=== PATIENT | male | born 1990 | race Caucasian/White ===

== ENCOUNTER 2016-09-27 17:52 | Emergency (ER) | payer MEDICAID ==
[~2016-09-27] VITALS: Ht 172.7 cm; Wt 64.0 kg
[~2016-09-27 17:52] MED LIST: ALBU8.5H3 INH; CETI10CA PO; GUAI120S26 PO; LEVO500T10 PO; MONT10TA21 PO; PRED10TA PO; PRED20TA PO; PRED25 PO
[2016-09-27 18:15] VITALS: Ht 172.7 cm; Wt 64.0 kg
[2016-09-27] MEDS ORDERED: ALBUTEROL 0.083% (NEB) 2.5 MG/3 ML AMP NEB STA (19:04)
[2016-09-27] MEDS ORDERED: predniSONE 20 MG TAB PO STA (19:04)
[2016-09-27] MEDS ORDERED: IPRATROPIUM (NEB) 0.5 MG/2.5 ML AMP NEB STA (19:04)
[2016-09-27] MEDS ORDERED: ACETAMINOPHEN 500 MG TAB PO STA (19:05)
[2016-09-27] MEDS ORDERED: IBUPROFEN 600 MG TAB PO ONE (19:30)
--- NOTE | 2016-09-27 20:06 | ERD ---
ER Documentation Chief Complaint Date/Time DATE: 09/27/16 TIME: 20:02 Chief Complaint SOB X3 DAYS. HX ASTHMA. DENIES INHALERS/BREATHING TX HPI This is a 25-year-old male with a known history of asthma that presents to the emergency department complaining of 3 days of dyspnea. The patient contrary to the triage note denies any shortness of breath but states his dyspnea is similar nature to his previous asthma exacerbations. He also had a tactile fever with shaking and chills and a sore throat. The patient did not use any rescue inhalers prior to arrival as he ran out of his inhalers over a year ago. He has never required intubation in the past for an asthma attack nor has he required admission to the hospital for an asthma attack. He utilizes his inhaler several times a year on a as needed basis and indicates his asthma exacerbates with animal dander and respiratory infections. He denies any abdominal pain. He has no recent travel or prolonged immobilization ROS All systems reviewed and are negative except as per history of present illness. Medications Home Meds Active Scripts Cetirizine Hcl* (Zyrtec*) 10 Mg Capsule, 10 MG PO DAILY, #30 TAB.CHEW Prov:ALBERT TALAVERA NP 12/16/15 Zstpvkxgxnd-M-Evbqmhugdr Hb* (Guaifenesin* DM Syrup) 120 Ml Syrup, 10 ML PO Q4H Y for COUGH, #60 ML Prov:ALBERT TALAVERA NP 12/16/15 Albuterol Sulfate* (Proair HFA*) 8.5 Gm Hfa.aer.ad, 2 PUFF INH Q4H Y for WHEEZING AND SOB, #1 INHALER Prov:ALBERT TALAVERA NP 12/16/15 Albuterol Sulfate* (Proair HFA*) 8.5 Gm Hfa.aer.ad, 2 PUFF INH Q4 for 14 Days, INH Prov:ADRIEL MENDOZA NP 04/12/15 Prednisone (Prednisone) 2.5 Mg Tab, 2.5 MG PO DAILY for 2 Days, TAB Prov:ADRIEL MENDOZA NP 04/12/15 Prednisone (Prednisone) 10 Mg Tab, 5 MG PO DAILY for 2 Days, TAB Prov:ADRIEL MENDOZA NP 04/12/15 Prednisone* (Prednisone*) 10 Mg Tab, 10 MG PO DAILY for 2 Days, TAB Prov:ADRIEL MENDOZA [employer] WORK[employer] 04/12/15 Prednisone* (Prednisone*) 20 Mg Tab, 20 MG PO DAILY, #2 TAB Prov:ADRIEL MENDOZA NP 04/12/15 Levofloxacin* (Levofloxacin*) 500 Mg Tablet, 500 MG PO DAILY for 7 Days, TAB Prov:ADRIEL MENDOZA NP 04/12/15 Montelukast Sodium* (Singulair*) 10 Mg Tab, 10 MG PO HS for 30 Days Prov:ADRIEL MENDOZA [employer] WORK[employer] 04/12/15 Allergies Allergies: Coded Allergies: No Known Allergy (Unverified , 09/27/16) PMhx/Soc Medical and Surgical Hx: pt denies Medical Hx, pt denies Surgical Hx History of Surgery: No Anesthesia Reaction: No Hx Neurological Disorder: No Hx Respiratory Disorders: Yes Hx Cardiac Disorders: No Hx Psychiatric Problems: No Hx Miscellaneous Medical Probl: No Hx Alcohol Use: No Hx Substance Use: No Hx Tobacco Use: No Physical Exam Vitals Vital Signs Date Time Temp Pulse Resp B/P Pulse Ox O2 Delivery O2 Flow Rate FiO2 09/27/16 19:30 94 22 97 21 09/27/16 18:15 100.6 100 28 125/59 98 Physical Exam Constitutional:Well-developed. Well-nourished. HEENT:Normocephalic. Atraumatic.Pupils were equal round reactive to light. Moist mucous membranes.No tonsillar exudates with erythremia both tonsils. Uvula midline. Neck: No nuchal rigidity. No lymphadenopathy. No posterior cervical spine tenderness or step-offs. Respiratory: Not using accessory muscles of respiration. Wheezing heard on end auscultation bilaterally with no rales or rhonchi. Patient speaking in full complete sentences. Cardiovascular: Regular rate regular rhythm.No murmurs. No rubs were appreciated.S1, S2 normal. Distal pulses are palpable 2+ bilaterally. GI: Abdomen was soft. Nontender. Non Distended. No pulsatile abdominal masses or bruits. No rebound. No guarding. Bowel sounds were present and normal. Muscle skeletal: Full range of motion of both the upper and lower extremities bilaterally.Normal muscle tone.No assymetrical calf tenderness or swelling. Skin: No petechia, no purpura. No lesions on the palms or the soles of the feet. No maculopapular rash. NEURO: Patient was alert, awake, orientated x3.No facial droop. Gait observed and normal with no ataxia.Speech had regular rate and rhythm. No focal neurological deficits. Results 24 hrs Current Medications Medications (Trade) Dose Ordered Sig/Mary Route PRN Reason Start Time Stop Time Status Last Admin Dose Admin Albuterol (Proventil 0.083% (Neb)) 5 mg ONCE STAT NEB 09/27/16 19:04 09/27/16 19:05 DC 09/27/16 19:29 Ipratropium [place] (Atrovent 0.02% (Neb)) 0.5 mg ONCE STAT NEB 09/27/16 19:04 09/27/16 19:05 DC 09/27/16 19:29 Prednisone (Prednisone) 60 mg ONCE STAT PO 09/27/16 19:04 09/27/16 19:05 DC 09/27/16 19:15 Ibuprofen (Motrin) 600 mg ONCE ONCE PO 09/27/16 19:30 09/27/16 19:31 DC 09/27/16 19:15 Acetaminophen (Tylenol Tab) 1,000 mg ONCE STAT PO 09/27/16 19:05 09/27/16 19:06 DC 09/27/16 19:15 Procedures/MDM This patient presented to the emergency department with a mild asthma exacerbation. The patient was given nebulizer treatment of albuterol and Atrovent and afterwards was reevaluated by myself and had no wheezing on auscultation. I did not feel is necessary to obtain a chest radiograph given that this is not new onset wheezing. The patient had a low-grade fever that was thought to be secondary to his pharyngitis. I did feel the pharyngitis was more likely viral in etiology however the patient stated he would prefer to be discharged with dose of antibiotics as he has had bronchitis in the past. He has no risk factors for a pulmonary embolism. The patient was discharged with azithromycin, low-dose steroids and nebulizer inhaler. The patient was discharged home in fair condition. They were instructed to return to the emergency department at any time if there was any worsening of their condition. The patient stated they would follow up with their PCP in the next 24-48 hours to initiate a suitable medication regimen under the care of their PCP as well as to allow their PCP to monitor any drug reactions. The patient was discharged home with prescriptions after they gave informed consent to the new medication. They were also fully informed by myself on the adverse effects and adverse drug interactions in order to provide adequate safeguards to prevent possible adverse reactions to medications. Departure Diagnosis: Primary Impression: Acute asthma exacerbation Asthma severity: unspecified severity Qualified Code: J45.901 - Asthma with acute exacerbation, unspecified asthma severity Additional Impression: Pharyngitis, acute Pharyngitis/tonsillitis etiology: unspecified etiology Qualified Code: J02.9 - Acute pharyngitis, unspecified etiology Condition: DANNY Walker Sep 27, 2016 20:06
[2016-09-27] MEDS ORDERED: ALB.5NB20 INHALATION (20:07)
[2016-09-27] MEDS ORDERED: PRED50TA PO (20:07)
[2016-09-27] MEDS ORDERED: AZIT250T94 PO (20:07)
[2016-09-27 20:28] VITALS: BP 130/61; PULSE 99; RESP 16; TEMP 99.3
== END 2016-09-27 20:28 | disposition home or self-care (01) ==
LOC: FTE 17:52
DX: J45.901 Unspecified asthma with (acute) exacerbation (principal); J02.9 Acute pharyngitis, unspecified
CPT/HCPCS: 94664; J7512; Z7502; Z7610

== ENCOUNTER 2018-03-16 08:07 | Emergency (ER) | END 2018-03-16 08:40 | disposition home or self-care (01) ==

== ENCOUNTER 2018-07-24 06:55 | Emergency (ER) | payer MEDICAID ==
[~2018-07-24] VITALS: Ht 167.6 cm; Wt 66.0 kg
[~2018-07-24 06:55] MED LIST changes: +ACET500C5 PO; +ALB.5NB20 INHALATION; -ALBU8.5H3 INH; +ALBU8.5H8 INH; +AMOX1TAB10 PO; +AZIT250T PO; +IBUP-1542 PO; +PRED50TA PO
[2018-07-24 06:57] VITALS: Ht 167.6 cm; Wt 66.0 kg
[2018-07-24] MEDS ORDERED: DEXAMETHASONE 10 MG/ML 1 ML INJ IM STA (07:19)
[2018-07-24] MEDS ORDERED: ALBUTEROL 0.083% (NEB) 2.5 MG/3 ML AMP NEB STA (07:19)
[2018-07-24] MEDS ORDERED: IPRATROPIUM (NEB) 0.5 MG/2.5 ML AMP NEB STA (07:19)
[2018-07-24] MEDS ORDERED: LEVALBUTEROL (NEB) 1.25 MG/0.5 ML AMP ONE (08:10)
[2018-07-24] MEDS ORDERED: LEVALBUTEROL (NEB) 1.25 MG/0.5 ML AMP HHN ONE (08:30)
[2018-07-24] MEDS ORDERED: ALBU18HF INHALATION (11:10)
[2018-07-24] MEDS ORDERED: PRED20TA PO (11:10)
[2018-07-24 11:32] VITALS: BP 116/58; PULSE 108; RESP 18
--- NOTE | 2018-07-26 10:39 | ERD ---
ER Documentation Chief Complaint Chief Complaint Coplains of SOB with a cough since last night Hx of Asthma HPI 27-year-old male with history of asthma complains of wheezing and shortness of breath along with cough for the last 3 days. Patient states that he currently does not take medication for his asthma but had a similar episode last year in which she was treated at our hospital. Patient denies any chest pain, diaphoresis, leg swelling, recent travel, fevers, hemoptysis, nausea, vomiting, diarrhea. Denies allergies. Denies medications. ROS All systems reviewed and are negative except as per history of present illness. Medications Home Meds Active Scripts Albuterol Sulfate* (Ventolin HFA*) 18 Gm Hfa.aer.ad, 2 PUFF INHALATION Q4H, #1 INHALER Prov:CHLESEA MOLINA 07/24/18 Prednisone* (Prednisone*) 20 Mg Tab, 60 MG PO DAILY for asthma for 5 Days, TAB Prov:CHELSEA MOLINA 07/24/18 Amoxicillin/Potassium Clav (Amox-Clav 875-125 mg Tablet) 875-125 mg Tab, 1 TAB PO BID for 7 Days, #14 TAB Prov:CINDI MATHEW PA-C 03/16/18 Acetaminophen* (Tylophen*) 500 Mg Capsule, 1 CAP PO Q6H PRN for PAIN AND OR ELEVATED TEMP, #30 CAP Prov:CINDI MATHEW PA-C 03/16/18 Ibuprofen* (Motrin*) 600 Mg Tab, 600 MG PO Q6, #30 TAB Prov:CINDI MATHEW PA-C 03/16/18 Prednisone* (Prednisone*) 50 Mg Tablet, 50 MG PO DAILY, #5 TAB Prov:DANNY LAWTON MD 09/27/16 Albuterol Sulfate* (Albuterol Sulfate* Neb) 20 Ml Nebu, 2.5 MG INHALATION Q4H, #1 BOTTLE Prov:DANNY LAWTON MD 09/27/16 Azithromycin* (Zithromax*) 250 Mg Tablet, 250 MG PO .CHANTE DIRECTED, #6 TAB TAKE 500 MG (2 TABS) THE FIRST DAY THEN 250 MG (1 TAB) DAYS 2-5 Prov:DANNY LAWTON MD 09/27/16 Cetirizine Hcl* (Zyrtec*) 10 Mg Capsule, 10 MG PO DAILY, #30 TAB.CHEW Prov:ALBERT TALAVERA NP 12/16/15 Mgwdeecmuxw-L-Pjfpgsgdwd Hb* (Guaifenesin* DM Syrup) 120 Ml Syrup, 10 ML PO Q4H PRN for COUGH, #60 ML Prov:ALBERT TALAVERA NP 12/16/15 Albuterol Sulfate* (Proair HFA*) 8.5 Gm Hfa.aer.ad, 2 PUFF INH Q4H PRN for WHEEZING AND SOB, #1 INHALER Prov:ALBERT TALAVERA NP 12/16/15 Albuterol Sulfate* (Proair HFA*) 8.5 Gm Hfa.aer.ad, 2 PUFF INH Q4 for 14 Days, INH Prov:ADRIEL MENDOZA NP 04/12/15 Prednisone (Prednisone) 2.5 Mg Tab, 2.5 MG PO DAILY for 2 Days, TAB Prov:ADRIEL MENDOZA NP 04/12/15 Prednisone (Prednisone) 10 Mg Tab, 5 MG PO DAILY for 2 Days, TAB Prov:ADRIEL MENDOZA NP 04/12/15 Prednisone* (Prednisone*) 10 Mg Tab, 10 MG PO DAILY for 2 Days, TAB Prov:ADRIEL MENDOZA NP 04/12/15 Prednisone* (Prednisone*) 20 Mg Tab, 20 MG PO DAILY, #2 TAB Prov:ADRIEL MENDOZA NP 04/12/15 Levofloxacin* (Levofloxacin*) 500 Mg Tablet, 500 MG PO DAILY for 7 Days, TAB Prov:ADRIEL MENDOZA NP 04/12/15 Montelukast Sodium* (Singulair*) 10 Mg Tab, 10 MG PO HS for 30 Days Prov:ADRIEL MENDOZA NP 04/12/15 Allergies Allergies: Coded Allergies: No Known Allergy (Unverified , 03/16/18) PMhx/Soc Medical and Surgical Hx: pt denies Surgical Hx History of Surgery: No Anesthesia Reaction: No Hx Neurological Disorder: No Hx Respiratory Disorders: Yes (ASTHMA) Hx Cardiac Disorders: No Hx Psychiatric Problems: No Hx Miscellaneous Medical Probl: No Hx Alcohol Use: No Hx Substance Use: No Hx Tobacco Use: No Smoking Status: Never smoker FmHx Family History: No diabetes, No coronary disease, No other Physical Exam Vitals Vital Signs Date Temp Pulse Resp B/P (MAP) Pulse Ox O2 O2 Flow FiO2 Time Delivery Rate 07/24/18 98.5 108 18 116/58 97 Room Air 11:32 (77) 07/24/18 120 19 96 21 08:15 07/24/18 85 17 95 21 07:34 07/24/18 Nasal 2 07:33 Cannula 07/24/18 97.4 125 20 162/75 94 06:57 (104) Physical Exam Const: No acute distress Head: Atraumatic Eyes: Normal Conjunctiva ENT: Normal External Ears, Nose and Mouth. Neck: Full range of motion. No meningismus. Resp: Wheezing heard in lung cervantes diffusely. No crackles. Equal breath sounds. Cardio: Regular rate and rhythm, no murmurs Ext: No cyanosis, or edema Neur: Awake and alert Psych: Normal Mood and Affect Results 24 hrs Current Medications Medications Dose Sig/Mary Start Time Status Last (Trade) Ordered Route PRN Stop Time Admin Dose Reason Admin Albuterol 7.5 mg ONCE STAT 07/24/18 DC 07/24/18 (Proventil NEB 07:19 07:33 0.083% (Neb)) 07/24/18 07:23 Ipratropium 0.5 mg ONCE STAT 07/24/18 DC 07/24/18 [place] NEB 07:19 07:33 (Atrovent 07/24/18 07:23 0.02% (Neb)) 10 mg ONCE STAT 07/24/18 DC 07/24/18 Dexamethasone IM 07:19 07:27 (Decadron) 07/24/18 07:23 1.25 mg STK-MED 07/24/18 DC Levalbuterol ONCE .ROUTE 08:10 (Xopenex 07/24/18 08:11 Neb) 3.75 mg ONCE ONCE 07/24/18 DC 07/24/18 Levalbuterol HHN 08:30 08:14 (Xopenex 07/24/18 08:31 Neb) Procedures/MDM DIAGNOSTIC IMAGING REPORT Patient: JUAN BRISCOE : 1990 Age: 27 Sex: M MR #: [id number] DOS: 07/24/18718 Ordering MD: CHELSEA MOLINA Location: [facility]TE Room/Bed: PROCEDURE: Single view chest. CLINICAL INDICATION: Asthma exacerbation TECHNIQUE: Single view of the chest was obtained COMPARISON: CR CHEST 12/16/2015; CR CHEST 04/10/2015; CR CHEST 05/29/2014 FINDINGS: There is no airspace consolidation or focal infiltrate. No pleural effusion or pneumothorax. Cardiac silhouette and mediastinal contours are unremarkable. Pulmonary vasculature appears normal. Regional bones are grossly unremarkable. IMPRESSION: No evidence of active cardiopulmonary disease. RPTAT: [facility] Physician Sendy Date Time Electronically viewed and signed by Physician Sendy on 07/24/2018 07:52 xB/ CC: CHELSEA MOLINA [phone] ER Course: Patient was given breathing treatment in the ER along with Decadron. CXR WNL. MDM: 27-year-old male with history of asthma complains of wheezing and shortness of breath along with cough for the last 3 days. Patient states that he currently does not take medication for his asthma but had a similar episode last year in which she was treated at our hospital. Patient denies any chest pain, diaphoresis, leg swelling, recent travel, fevers, hemoptysis, nausea, vomiting, diarrhea. Denies allergies. Denies medications. Patient was giving a breathing treatment in the ER along with Decadron and states he feels much better. His work of breathing has decreased and he denies any difficulty breathing. In addition, there was no wheezing heard after treatment. I have low suspicion for status asthmaticus, pneumothorax, pulmonary embolism, aspirated foreign body, or any other emergent condition. Patient presentation is consistent with asthma exacerbation and he was sent home with Rx for prednisone for 5 days as well as albuterol. Patient advised that he needs to follow this condition with his primary care physician. Patient discharged with strict ER precautions. Patient advised to follow up with PMD. All questions answered at discharge. Departure Diagnosis: Primary Impression: Asthma Asthma severity: unspecified severity Asthma persistence: intermittent Asthma complication type: unspecified Qualified Codes: J45.20 - Mild intermittent asthma, uncomplicated Condition: Stable Patient Instructions: Asthma, Asthma Medications Referrals: [facility] YOU HAVE RECEIVED A MEDICAL SCREENING EXAM AND THE RESULTS INDICATE THAT YOU DO NOT HAVE A CONDITION THAT REQUIRES URGENT TREATMENT IN THE EMERGENCY DEPARTMENT. FURTHER EVALUATION AND TREATMENT OF YOUR CONDITION CAN WAIT UNTIL YOU ARE SEEN IN YOUR DOCTORS OFFICE WITHIN THE NEXT 1-2 DAYS. IT IS YOUR RESPONSIBILITY TO MAKE AN APPOINTMENT FOR FOLOW-UP CARE. IF YOU HAVE A PRIMARY DOCTOR --you should call your primary doctor and schedule an appointment IF YOU DO NOT HAVE A PRIMARY DOCTOR YOU CAN CALL OUR PHYSICIAN REFERRAL HOTLINE AT IF YOU CAN NOT AFFORD TO SEE A PHYSICIAN YOU CAN CHOSE FROM THE FOLLOWING [facility] [address] [facility] [address] [facility] [facility] [address] [facility] [address] [facility] [address] [facility] [facility]. [address] Additional Instructions: FOLLOW UP WITH YOUR PRIMARY CARE PHYSICIAN TOMORROW.Return to this facility if you are not improving as expected. CHELSEA MOLINA Jul 26, 2018 10:39
== END 2018-07-24 11:33 | disposition home or self-care (01) ==
LOC: FTE 06:55
DX: J45.20 Mild intermittent asthma, uncomplicated (principal)
CPT/HCPCS: 71045; 94644; 94664; 96372; J1100; Z7502; Z7610; 94640